=== PATIENT | male | born 1975 | race Hispanic/Latino ===

== ENCOUNTER 2022-08-19 10:50 | Emergency (ER) | payer BC ==
[~2022-08-19] VITALS: Ht 175.3 cm; Wt 91.0 kg
[2022-08-19] VITALS (20 sets, daily range): BP systolic 91–142; BP diastolic 47–75
[2022-08-19] MEDS ORDERED: METFORMIN HCL500 M1 PO (11:03)
[2022-08-19] MEDS ORDERED: OZEMPIC 8 MG/3M1 INJ IM (11:04)
[2022-08-19 11:17] LABS: HEMATOCRIT 43.9 % (39.0-50.0); HEMOGLOBIN 14.4 g/dl (14.0-18.0); IMMATURE GRANULOCYTES 0.3 % (0.0-5.0); MEAN CORPUSCULAR HGB 28.9 pG CALC (26.0-32.0); MEAN CORPUSCULAR HGB CONC 32.8 g/dL CAL (32.0-36.0); NEUT# 14.74 thou/uL (1.82-7.42); RED BLOOD COUNT 4.99 mill/uL (4.70-6.10); RED CELL DISTRI WIDTH 13.5 % (11.5-15.5)
[2022-08-19 11:38] LABS: ALBUMIN 4.3 g/dL (3.2-5.0); ALKALINE PHOSPHATASE 81 u/l (38-126); ANION GAP 17 (6-22 (CALC)); BILIRUBIN, TOTAL 0.8 mg/dL (0.0-1.4); BUN 14 mg/dL (9-20); BUN/CREATININE RATIO 18 (12-20 (CALC)); CARBON DIOXIDE 21 mmol/l (22-30); CHLORIDE 101 mmol/l (95-108); CREATININE 0.8 mg/dL (0.7-1.3); GFR FOR AFR.AMER. > 60 ML/MIN (>=60 (CALC)); GFR OTHER RACES > 60 ML/MIN (>=60 (CALC)); SGOT/AST 23 u/l (17-59); SODIUM 135 mmol/l (137-146); TOTAL PROTEIN 7.9 g/dL (6.3-8.2)
[2022-08-19] MEDS ORDERED: OMNI-PAC300 MG PO (15:01)
[2022-08-19] MEDS ORDERED: BACTRIM DS1 TAB PO (15:01)
[2022-08-19] MEDS ORDERED: HYDROCO/APAP1 T10 PO (15:02)
== END 2022-08-19 15:30 | disposition left against medical advice (07) | DRG 581 ==
LOC: ED 10:50 → ED-I 13:00 → ED 15:30
PROVIDERS: Family Medicine
PROC: 0H99XZZ Drainage of Perineum Skin, External Approach (ICD-10-PCS; principal; 2022-08-19)
DX: L02.215 Cutaneous abscess of perineum (principal); E11.9 Type 2 diabetes mellitus without complications; F17.210 Nicotine dependence, cigarettes, uncomplicated; B95.62 Methicillin resistant Staphylococcus aureus infection as the cause of diseases classified elsewhere; Z79.84 Long term (current) use of oral hypoglycemic drugs; Z20.822 Contact with and (suspected) exposure to COVID-19; Z53.29 Procedure and treatment not carried out because of patient's decision for other reasons
CPT/HCPCS: Q9967